=== PATIENT | female | born 1975 | race Caucasian/White ===

== ENCOUNTER 2019-07-13 03:48 | Emergency (ER) | payer OTHER ==
[~2019-07-13] VITALS: Ht 157.5 cm; Wt 71.8 kg
[2019-07-13 03:50] VITALS: BP 138/78
[2019-07-13] MEDS ORDERED: LIDOCAINE-MPF 1%, 5ML INFIL ONE (05:00)
--- NOTE | 2019-07-13 05:01 | NUR ---
PA TO ROOM
[2019-07-13] MEDS ORDERED: LIDOCAINE-MPF 2% ,5ML ONE (05:17)
[2019-07-13] MEDS ORDERED: LIDOCAINE-MPF 1%, 5ML ONE (05:19)
[2019-07-13] MEDS ORDERED: HYDROmorphone 1 MG/ML, 1ML INJ ONE (05:29)
[2019-07-13] MEDS ORDERED: ONDANSETRON ODT 4 MG ONE (05:29)
[2019-07-13] MEDS ORDERED: ONDANSETRON ODT 4 MG PO ONE (05:30)
[2019-07-13] MEDS ORDERED: HYDROmorphone 1 MG/ML, 1ML INJ IM ONE (05:30)
--- NOTE | 2019-07-13 05:46 | NUR ---
PATIENT MEDICATED PER EMAR, TOLERATED WELL PA TO ROOM FOR I&D
--- NOTE | 2019-07-13 06:02 | NUR ---
PATIENT AMBULATORY WITH STEADY GAIT TO DISCHARGE, PATIETN VERBALIZED FRIEND WILL PICK HER UP. PATIENT COMMUNICATED UNDERSTANDING OF DISCHARGE INSTRUCTIONS/ FOLLOW UP CARE/ RX.
== END 2019-07-13 06:05 | disposition home or self-care (01) ==
LOC: ED 05:04
DX: L02.411 Cutaneous abscess of right axilla (principal); J45.909 Unspecified asthma, uncomplicated
CPT/HCPCS: 96372; 99283; J1170; Q0162